=== PATIENT | female | born 1975 | race African-American/Black ===

== ENCOUNTER 2016-12-12 18:28 | Emergency (ER) | payer BC, OTHER ==
--- NOTE | ~2016-12-12 | CR150 ---
[facility] A Service of [facility] & [facility] RADIOLOGY TEXT RESULTS PATIENT: MIA PEARL LOCATION: CFTX : 73 UNIT #: [id number] AGE: [address]: Janee Peters SEX: F ORDER DR: [id number] [facility] [address] [place], [place] [address] [id number] E MR#: [id number] Acc #: [id number] NAME: MIA PEARL : 1975 SEX: F STUDY DATE/TIME: 12/12/2016 17:53 UNIT: [facility] ROOM: STUDY DESCRIPTION: CR Hip Min 2 Views Lt Attending Physician: Janee Peters P.A.-C. Ordering Physician: Janee Peters P.A.-C. Primary Care Physician: Amadeo Degroot M.D. MEDICAL IMAGING REPORT This report is preliminary unless electronic signature is present EXAM Left hip and pelvis. HISTORY Left-sided hip pain radiating to left leg times 2 weeks FINDINGS AP pelvis and frog lateral view left hip demonstrates no fracture or dislocation. No significant arthritic or inflammatory change. Soft tissues appear normal. IMPRESSION Normal left hip and pelvis. Dictated by... Lamont Sapp M.D. THIS IS AN ELECTRONICALLY VERIFIED REPORT Lamont Sapp M.D. at 12/13/2016 7:29 AM Kamron TD: 12/13/2016 06:52 JOB #: [id number] MEDICAL IMAGING REPORT Page 1 of 1 COPY
--- NOTE | ~2016-12-12 | CR181 ---
[facility] A Service of [facility] & [facility] RADIOLOGY TEXT RESULTS PATIENT: MIA PEARL LOCATION: CFTX : 71 UNIT #: [id number] AGE: [address]: Janee Peters SEX: F ORDER DR: [id number] [facility] [address] [place], [place] [address] [id number] E MR#: [id number] Acc #: [id number] NAME: MIA PEARL : 1975 SEX: F STUDY DATE/TIME: 12/12/2016 17:51 UNIT: [facility] ROOM: STUDY DESCRIPTION: CR Lumbar Spine 2 or 3 Views Attending Physician: Janee Peters P.A.-C. Ordering Physician: Janee Peters P.A.-C. Primary Care Physician: Amadeo Degroot M.D. MEDICAL IMAGING REPORT This report is preliminary unless electronic signature is present EXAM Lumbar spine 3 views HISTORY Left-sided hip pain radiating to left leg times 2 weeks, worse over the last 2 days, back pain. FINDINGS AP, lateral and cone lateral views of the lumbar spine demonstrates no fracture or malalignment. No spondylolysis or spondylolisthesis. Disc spaces appear maintained. Visualized SI joints and soft tissues appear normal. IMPRESSION Normal lumbar spine. Dictated by... Lamont Sapp M.D. THIS IS AN ELECTRONICALLY VERIFIED REPORT Lamont Sapp M.D. at 12/13/2016 7:29 AM Kamron TD: 12/13/2016 06:50 JOB #: [id number] MEDICAL IMAGING REPORT Page 1 of 1 COPY
[~2016-12-12 18:28] MED LIST: ACETAMINOPHEN PO; ADVAIR 2501 DISK W/D PO; ALBUTEROL17 GM INH; ANUSOL-HC CREAM30 GM TOP; ASPIRIN PO; COUMADIN PO; FLEXERIL10 M1 PO; GUAIFENESIN600 M1 PO; IBUPROFEN PO; LEVAQUIN PO; LISINOPRIL-HCTZ1 T19 PO; LORATADINE PO; MOTRIN50 MG/1.25 PO; PREDNISONE PO; PRILOSEC PO; SILVADENE TOP; SIMVASTATIN40 MG PO; SINGULAIR PO; TYLENOL325 M1 PO; VOLTAREN50 MG PO; ZANTAC PO; ZANTAC150 M1 PO; ZANTAC150 MG PO; ZESTORETIC PO; ZITHROMAX PO; ZYRTEC PO
== END 2016-12-12 18:47 | disposition home or self-care (01) ==
LOC: CFTX 18:28
DX: M25.552 Pain in left hip (principal); J45.909 Unspecified asthma, uncomplicated; I10 Essential (primary) hypertension; E78.5 Hyperlipidemia, unspecified; Z88.0 Allergy status to penicillin
CPT/HCPCS: 72100; 73502; 96372; 99284; J1885

== ENCOUNTER 2017-02-12 21:09 | Emergency (ER) | payer BC, OTHER ==
--- NOTE | ~2017-02-12 | CT71 ---
[facility] A Service of [facility] RADIOLOGY TEXT RESULTS PATIENT: MAI PEARL LOCATION: [facility] : 73 UNIT #: [id number] AGE: [address]: Charles Ruiz MD SEX: F ORDER DR: [id number] [place] [id number] [facility] [place], [place] [address] [id number] E MR#: [id number] Acc #: [id number] NAME: MIA PEARL : 1975 SEX: F STUDY DATE/TIME: 02/13/2017 0:42 UNIT: [facility] ROOM: STUDY DESCRIPTION: CT Head Wo Contrast Attending Physician: Charles Ruiz M.D. Ordering Physician: Charles Ruiz M.D. Primary Care Physician: Amadeo Degroot M.D. MEDICAL IMAGING REPORT This report is preliminary unless electronic signature is present EXAM CT head without contrast INDICATIONS Headache and dizziness tonight. PROCEDURE Unenhanced CT head The CT exam was performed with one or more of the following radiation dose reduction techniques: automatic exposure control, adjustment of mA and/or kV according to patient size, and iterative reconstruction. COMPARISON: 06/03/2015 FINDINGS No acute hemorrhage. No abnormal mass effect, extraaxial collection or hydrocephalus. Mucous retention cyst left sphenoid sinus. No calvarial fracture. IMPRESSION No acute intracranial findings. Dictated by... Santo Andersen M.D. THIS IS AN ELECTRONICALLY VERIFIED REPORT Santo Andersen M.D. at 02/14/2017 9:56 PM EED/corey TD: 02/13/2017 10:28 JOB #: [id number] [facility] A Service [facility] RADIOLOGY TEXT RESULTS PATIENT: MIA PEARL LOCATION: [facility] : 73 UNIT #: [id number] AGE: [address]: Charles Ruiz MD SEX: F ORDER DR: MEDICAL IMAGING REPORT Page 1 of 1 COPY
--- NOTE | ~2017-02-12 | CR72 ---
[facility] A Service of [facility] & [facility] RADIOLOGY TEXT RESULTS PATIENT: MIA PEARL LOCATION: [facility] : 71 UNIT #: [id number] AGE: [address]: Charles Ruiz MD SEX: F ORDER DR: [id number] [facility] [address] [place], [place] [address] [id number] E MR#: [id number] Acc #: [id number] NAME: MIA PEARL : 1975 SEX: F STUDY DATE/TIME: 02/13/2017 0:40 UNIT: [facility] ROOM: STUDY DESCRIPTION: CR Chest Single View Portable Attending Physician: Charles Ruiz M.D. Ordering Physician: Charles Ruiz M.D. Primary Care Physician: Amadeo Degroot M.D. MEDICAL IMAGING REPORT This report is preliminary unless electronic signature is present EXAM Portable chest INDICATIONS Shortness of air today. PROCEDURE Frontal view chest. COMPARISON STUDIES 10/14/2015 FINDINGS Cardiomegaly probably unchanged. No dense consolidation, effusion or pneumothorax. IMPRESSION No active process. Dictated by... Santo Andersen M.D. THIS IS AN ELECTRONICALLY VERIFIED REPORT Santo Andersen M.D. at 02/14/2017 9:56 PM EED/giuliana TD: 02/13/2017 10:21 JOB #: [id number] MEDICAL IMAGING REPORT [facility] A Service of [facility] & [facility] RADIOLOGY TEXT RESULTS PATIENT: MIA PEARL LOCATION: [facility] : 73 UNIT #: [id number] AGE: [address]: Charles Ruiz MD SEX: F ORDER DR: Page 1 of 1 COPY
--- NOTE | ~2017-02-12 | EKG ---
PATIENT: MIA PEARL UNIT #: [id number] Ventricular Rate: 75 BPM Atrial Rate: 75 BPM P-R Interval: 152 ms QRS Duration: 78 ms Q-T Interval: 406 ms QTC Calculation(Bezet): 453 ms P Fate: 64 degrees Calculated R Fate: 45 degrees Calculated T Fate: 51 degrees Diagnosis Line: Normal sinus rhythm Diagnosis Line: Normal ECG Diagnosis Line: No previous ECGs available Diagnosis Line: Confirmed by BEBA CERVANTES MD ([id number]) on Diagnosis Line: 02/13/2017 9:39:39 PM INTERPRETING MD: HELEN BARRETO
[2017-02-12 22:56] LABS: BASOPHIL# 0.2 X10e3 (0-0.3); BASOPHIL% 1.3 % (0-2.5); EOSINOPHIL# 0.1 X10e3 (0-0.7); EOSINOPHIL% 0.7 % (0.0-7.0); HEMATOCRIT 35.2 % (35.0-45.0); HEMOGLOBIN 11.3 gm/dL (12.0-16.0); LYMPHOCYTE% 15.2 % (17.0-45.0); MEAN CELL VOLUME 82.1 FL (83-96); MEAN CORPUSCULAR HEMOGLOBIN 26.3 PG (28-34); MEAN CORPUSCULAR HGB CONC 32.1 g/dL (30-36); MEAN PLATELET VOLUME 7.2 FL (6.5-11.5); MONOCYTE# 0.5 X10e3 (0-1.0); MONOCYTE% 4.2 % (3.0-12.0); NEUTROPHIL# 10.3 X10e3 (1.5-7.1); NEUTROPHIL% 78.6 % (40-75); PLATELET COUNT 478 X10e3 (140-420); RED BLOOD COUNT 4.29 X10e (3.90-5.30); RED CELL DISTRIBUTION WIDTH 17.4 % (11.0-15.5); WHITE BLOOD COUNT 13.1 X10e3 (4.0-10.5)
[2017-02-12 22:57] LABS: DIFF IND NO
[2017-02-12 23:04] LABS: URINE SOURCE CLEAN CATCH
[2017-02-12 23:07] LABS: POC - CKMB <1.0 ng/mL (0.0-7.9); POC - TROPONIN <0.05 ng/mL (<=0.05)
[2017-02-12 23:13] LABS: URINE APPEARANCE CLEAR; URINE BILIRUBIN NEG (NEG); URINE BLOOD NEG (NEG); URINE COLOR YELLOW; URINE GLUCOSE NEG (NEG); URINE KETONE NEG (NEG); URINE LEUKOCYTE ESTERASE NEG (NEG); URINE NITRATE NEG (NEG); URINE PROTEIN NEG (NEG); URINE SPECIFIC GRAVITY 1.008 (1.003-1.035); URINE UROBILINOGEN 0.2 MG/DL (NEG)
[2017-02-12 23:17] LABS: CULTURE INDICATED? NO
[2017-02-12 23:20] LABS: ALBUMIN SERUM 4.6 g/dL (3.5-5.0); BILIRUBIN, DIRECT 0.1 mg/dL (0.0-0.2); BILIRUBIN,INDIRECT 0.1 mg/dL (0.0-0.9); BILIRUBIN,TOTAL 0.2 mg/dL (0.2-2.0); BUN/CREATININE RATIO 12.5; CALCIUM SERUM 9.4 mg/dL (8.4-10.2); CREATININE SERUM 0.8 mg/dL (0.6-1.4); GLOM FILT RATE Estimated 104.7 mL/min (>60); POTASSIUM 3.7 mmol/L (3.5-5.1); PROTEIN TOTAL SERUM 9.4 g/dL (6.0-8.3)
[2017-02-12 23:29] LABS: AMPHETAMINE NEG (NEG); BARBITURATES NEG (NEG); BENZODIAZEPINES NEG (NEG); COCAINE NEG (NEG); MARIJUANA NEG (NEG); OPIATES NEG (NEG); TRICYCLIC ANTIDEPRESSANTS NEG (NEG); U METHADONE NEG (NEG)
[2017-02-13 01:21] LABS: POC - CKMB <1.0 ng/mL (0.0-7.9); POC - TROPONIN <0.05 ng/mL (<=0.05)
== END 2017-02-13 01:53 | disposition home or self-care (01) ==
LOC: CED 21:09
PROVIDERS: Emergency Medicine
DX: I10 Essential (primary) hypertension (principal); T50.995A Adverse effect of other drugs, medicaments and biological substances, initial encounter; F41.9 Anxiety disorder, unspecified; Z91.14 Patient's other noncompliance with medication regimen; Z87.891 Personal history of nicotine dependence; Z88.0 Allergy status to penicillin
CPT/HCPCS: 36415; 70450; 71010; 80048; 80076; 80307; 81003; 82553; 82947; 84484; 85025; 93005; 96360; 99284

== ENCOUNTER 2017-04-03 11:40 | Emergency (ER) | payer BC, OTHER ==
[~2017-04-03] VITALS: Ht 162.6 cm; Wt 115.2 kg
--- NOTE | ~2017-04-03 | CT2 ---
[facility] A Service of [facility] & [facility] RADIOLOGY TEXT RESULTS PATIENT: MIA PEARL LOCATION: CFTX : 73 UNIT #: [id number] AGE: [address]: Janelle Zhang APRN SEX: F ORDER DR: [id number] [facility] [address] [place], [place] [address] [id number] E MR#: [id number] Acc #: [id number] NAME: MIA PEARL : 1975 SEX: F STUDY DATE/TIME: 04/03/2017 13:47 UNIT: CFTX ROOM: STUDY DESCRIPTION: CT Abd and Pelv W Cont Attending Physician: Janelle Zhang A.P.R.N. Ordering Physician: Ed Doctor [id number] [facility] Primary Care Physician: Amadeo Degroot M.D. MEDICAL IMAGING REPORT This report is preliminary unless electronic signature is present EXAM CT abdomen and pelvis with contrast, 04/03/2017, 1347 hours. CLINICAL HISTORY 41-year-old woman complaining of low back pain, pelvic pain and constipation for 5 days. COMPARISON 11/27/[address] images were obtained from the lung bases through the pubic symphysis. Sagittal and coronal reconstructions were performed. Contrast was Isovue-370 100 mL IV. Total exam DLP 1164 mGy-cm. This CT exam was performed with one or more of the following radiation dose reduction techniques: automatic exposure control, adjustment of mA and/or kV according to patient size, and iterative reconstruction. FINDINGS Images through the lung bases are clear. There are no effusions. Images through the abdomen demonstrate a normal appearance to the liver, spleen, pancreas, gallbladder, bile ducts and adrenal glands. The kidneys enhance normally. There is no renal mass or distension. There is a punctate stone nonobstructing in the lower pole left kidney on image 39. This is likely unchanged from 11/27/2013. There is no ureterectasis or ureteral calculus. The abdominal aorta is normal in caliber. There is no adenopathy or ascites. The stomach is poorly distended and unopacified, but appears normal. ST[facility]. [facility] A Service of [facility] & [facility] RADIOLOGY TEXT RESULTS PATIENT: MIA PEARL LOCATION: [facility] : 71 UNIT #: [id number] AGE: [address]: Janelle Zhang APRN SEX: F ORDER DR: There is no small bowel distension or small bowel wall thickening. The terminal ileum, cecum and appendix are normal. The colon is nondistended. There is no evidence of colonic wall thickening or increased stool burden. CT pelvis demonstrates an anteverted uterus, which is off axis to the right. The uterus is mildly enlarged and somewhat nodular in appearance similar to prior exam. The endometrial cavity is prominent with question of a nodule protruding into the endometrial cavity from the right lateral wall on image 66. This could be due to leiomyoma. Consider followup ultrasound as warranted. Correlate with date of last menstrual period, which is not included on the history form today. Bone window images demonstrate no fracture, disc height loss or malalignment in the lumbar spine. There is endplate spurring in the lower thoracic spine similar to prior study. IMPRESSION 1. There is no evidence of bowel obstruction, bowel distension or increased quantity of stool. 2. There is a punctate nonobstructing stone in the lower pole left kidney anteriorly unchanged from 11/27/2013. 3. There is no evidence of appendicitis. 4. The uterus is anteverted and off axis to the right and appears somewhat enlarged, but similar to 11/27/2013. The endometrial cavity is prominent with question of a small nodule protruding into the low-density endometrial cavity from the right side. This could be due to underlying leiomyoma. Correlate with date of last menstrual period. Consider further characterization with pelvic ultrasound if not recently performed. 5. Lumbar spine appears negative. Dictated by... Laquita Hawthorne M.D. THIS IS AN ELECTRONICALLY VERIFIED REPORT Laquita Hawthorne M.D. at 04/04/2017 12:03 PM JULES/montrell TD: 04/04/2017 07:09 JOB #: [id number] MEDICAL IMAGING REPORT Page 1 of 1 COPY
[2017-04-03 12:42] LABS: URINE SOURCE CLEAN CATCH
[2017-04-03 12:51] LABS: URINE APPEARANCE CLEAR; URINE BILIRUBIN NEG (NEG); URINE BLOOD NEG (NEG); URINE COLOR YELLOW; URINE GLUCOSE NEG (NEG); URINE KETONE TRACE (NEG); URINE LEUKOCYTE ESTERASE NEG (NEG); URINE NITRATE NEG (NEG); URINE PH 5.5 (5-8); URINE PROTEIN NEG (NEG); URINE SPECIFIC GRAVITY 1.031 (1.003-1.035); URINE UROBILINOGEN 0.2 MG/DL (NEG)
[2017-04-03 12:54] LABS: CULTURE INDICATED? NO
[2017-04-03 12:59] LABS: BASOPHIL% 0.4 % (0-2.5); EOSINOPHIL# 0.2 X10e3 (0-0.7); EOSINOPHIL% 2.7 % (0.0-7.0); HEMATOCRIT 31.7 % (35.0-45.0); LYMPHOCYTE# 1.4 X10e3 (1.0-3.5); LYMPHOCYTE% 20.6 % (17.0-45.0); MEAN CELL VOLUME 82.3 FL (83-96); MEAN CORPUSCULAR HGB CONC 31.6 g/dL (30-36); MEAN PLATELET VOLUME 6.9 FL (6.5-11.5); MONOCYTE# 0.6 X10e3 (0-1.0); MONOCYTE% 8.4 % (3.0-12.0); NEUTROPHIL# 4.6 X10e3 (1.5-7.1); NEUTROPHIL% 67.9 % (40-75); PLATELET COUNT 368 X10e3 (140-420); RED BLOOD COUNT 3.86 X10e (3.90-5.30); WHITE BLOOD COUNT 6.8 X10e3 (4.0-10.5)
[2017-04-03 13:03] LABS: DIFF IND NO
[2017-04-03 13:23] LABS: ALBUMIN SERUM 3.8 g/dL (3.5-5.0); BILIRUBIN,TOTAL 0.6 mg/dL (0.2-2.0); BUN/CREATININE RATIO 12.5; CALCIUM SERUM 9.3 mg/dL (8.4-10.2); CREATININE SERUM 0.8 mg/dL (0.6-1.4); GLOM FILT RATE Estimated 104.7 mL/min (>60); POTASSIUM 3.4 mmol/L (3.5-5.1); PROTEIN TOTAL SERUM 7.9 g/dL (6.0-8.3)
[2017-04-06 00:31] LABS: CHLAMYDIA TRACH Not Detected (Not Detected); N GONOR Not Detected (Not Detected)
== END 2017-04-03 15:05 | disposition home or self-care (01) ==
LOC: CED 11:40 → CFTX 11:40
PROVIDERS: Nurse Practitioner
DX: N76.0 Acute vaginitis (principal); D53.9 Nutritional anemia, unspecified; I10 Essential (primary) hypertension; J45.909 Unspecified asthma, uncomplicated; Z88.0 Allergy status to penicillin
CPT/HCPCS: 36415; 74177; 80053; 81003; 84703; 85025; 87210; 87491; 87591; 87808; 87905; 96360; 99284; Q9967